=== PATIENT | female | born 1975 | race African-American/Black ===

== ENCOUNTER 2019-09-23 14:56 | Inpatient (IN) | payer OTHER ==
[2019-09-23 15:20] VITALS: BMI 22.1
--- NOTE | 2019-09-23 16:57 | HP ---
CIWA Score Nausea/Vomitin-Mild Nausea/No Vomiting Muscle Tremors: 4-Moderate,w/Arms Extend Anxiety: 4-Mod. Anxious/Guarded Agitation: 4-Moderately Restless Paroxysmal Sweats: 3 (Increased facial moisture) Orientation: 0-Oriented Tacttile Disturbances: 0-None Auditory Disturbances: 0-None Visual Disturbances: 0-None Headache: 5-Severe CIWA-Ar Total Score: 21 - Admission Criteria OASAS Guidelines: Admission for Medically Managed Detox: Requires at least one of the followin. CIWA greater than 12 2. Seizures within the past 24 hours 3. Delirium tremens within the past 24 hours 4. Hallucinations within the past 24 hours 5. Acute intervention needed for co occurring medical disorder 6. Acute intervention needed for co occurring psychiatric disorder 7. Severe withdrawal that cannot be handled at a lower level of care (continued vomiting, continued diarrhea, abnormal vital signs) requiring intravenous medication and/or fluids 8. Patient presents the following: CIWA greater than 12 (JOSELINE: 0.015) Admission Criteria Met: Admission criteria met Admission ROS [facility] Chief Complaint: States "here because I want to be clean for the new year." Allergies/Adverse Reactions: Allergies Allergy/AdvReac Type Severity Reaction Status Date / Time No Known Allergies Allergy Verified 09/23/19 15:14 History of Present Illness: 44 yo presents w/alcohol withdrawal symptoms seeking detox. JOSELINE: 0.015 UTox: + THC/MODESTO HCG: Neg Denies seizures or overdoses. States has had blackouts in the past. Longest sobriety 8 months in 2006. Alcohol use began at age 14. Currently drinks 5 nips/day and 7-12 oz beers/day x 5 years. Marijuana use began at age 12. Uses $50/ daily. Cocaine/crack use began at age 30. Currently using $2-300/day x 14 years. Nicotine use began at age 16. Smokes 6 cig/day. PMHx: Occ Migraine headaches; MHHx: Bipolar/Schizophrenia. Depression. States gets upset when has to talk a lot. Denies thoughts of harming self or others. SHx: Homeless. Unemployed. Denies legal issues. Search Terms: Topher Nathan, 1975 Search Date: 09/23/2019 05:03:52 PM The Drug Utilization Report below displays all of the controlled substance prescriptions, if any, that your patient has filled in the last twelve months. The information displayed on this report is compiled from pharmacy submissions to the Department, and accurately reflects the information as submitted by the pharmacies. This report was requested by: Agata Shaw | Reference #: [id number] There are no results for the search terms that you entered. Exam Limitations: No Limitations - Ebola screening Have you traveled outside of the country in the last 21 days: No (N) Have you had contact with anyone from an Ebola affected area: No Have you been sick,other than usual withdrawal symptoms: No Do you have a fever: No - Review of Systems Constitutional: Unexplained wgt Loss EENT: reports: Blurred Vision Respiratory: reports: No Symptoms reported Cardiac: reports: No Symptoms Reported GI: reports: Nausea, Indigestion (Heart burn - occ. Uses OTC meds) : reports: No Symptoms Reported Musculoskeletal: reports: Back Pain (Chronic intermittent pins and needles low back pain. "3". Increases w/ standing. Improves w/ lating down.), Joint Pain ((R ) ankle and knee pain when it rains) Integumentary: reports: No Symptoms Reported Neuro: reports: Headache (Frontal sharp headache - "10". Improves w/ silence.), Tremors Endocrine: reports: No Symptoms Reported Hematology: reports: No Symptoms Reported Psychiatric: reports: Orientated x3, Agitated, Depressed (Denies thoughts of harming self or others.), other (Responding to questions in short, abrupt manner ,) Other Systems: Reviewed and Negative Patient History - PPD History Previous Implant?: Yes Documented Results: Negative w/proof Implanted On Prior R Admission?: No PPD to be Administered?: Yes - Reproductive History Patient is a Female of Child Bearing Age (11 -55 yrs old): Yes Last Menstrual Period: 08/24/19 Patient : No - Smoking Cessation Smoking history: Current every day smoker Have you smoked in the past 12 months: Yes Aproximately how many cigarettes per day: 6 Hx Chewing Tobacco Use: No Initiated information on smoking cessation: Yes 'Breaking Loose' booklet given: 09/23/19 - Substance & Tx. History Hx Alcohol Use: Yes Hx Substance Use: Yes Substance Use Type: Alcohol, Cocaine, Marijuana Hx Substance Use Treatment: Yes (detox) - Substances abused Alcohol Substance route: Oral Frequency: Daily Amount used: 5 nips of vodka/whiskey & 7 beers Age of first use: 14 Date of last use: 09/23/19 Crack Other (specify): cocaine Substance route: Smoking Frequency: Daily Amount used: $200 Age of first use: 30 Date of last use: 09/23/19 Admission Physical Exam S - Vital Signs Vital Signs: Vital Signs - 24 hr 09/23/19 15:14 Temperature 97.7 F Pulse Rate 96 H Respiratory 18 Rate Blood Pressure 119/75 - Physical General Appearance: Yes: Nourished, Moderate Distress, Tremorous, Irritable, Sweating (Increased facial moisture), Anxious HEENTM: Yes: EOMI (Jerking movement of eyes upon lateral), Hearing grossly Normal, Normocephalic, Normal Voice, MEENAKSHI, Pharynx Normal, Nasal Congestion Respiratory: Yes: Lungs Clear (Pulse Ox = 97 %), Normal Breath Sounds, No Respiratory Distress Neck: Yes: No masses,lesions,Nodules, Supple Breast: Yes: Breast Exam Deferred Cardiology: Yes: Regular Rhythm, Regular Rate, S1, S2 Abdominal: Yes: Non Tender, Flat, Soft, Increased Bowel Sounds Genitourinary: Yes: Within Normal Limits Back: Yes: Other (Small curvature lumbar spinal area) Musculoskeletal: Yes: full range of Motion, Gait Steady Extremities: Yes: Normal Capillary Refill (Peripheral pulse +; No edema.) Neurological: Yes: 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 II-XII NML intact (Jerking movement of eyes upon lateral) , Fully Oriented, Alert, Motor Strength 5/5, Other (Upset about being asked questions.) Integumentary: Yes: Normal Color, Warm, Moist (Increased facial moisture) Lymphatic: Yes: Within Normal Limits - Diagnostic (1) Alcohol dependence with withdrawal, uncomplicated Current Visit: Yes Status: Acute (2) Cannabis dependence, uncomplicated Current Visit: Yes Status: Chronic (3) Cocaine dependence, uncomplicated Current Visit: Yes Status: Chronic (4) Low back pain Current Visit: Yes Status: Chronic Qualifiers: Chronicity: chronic Back pain laterality: midline Sciatica presence: unspecified whether sciatica present Qualified Code(s): M54.5 - Low back pain ; G89.29 - Other chronic pain (5) Nystagmus Current Visit: Yes Status: Acute (6) Nicotine dependence, unspecified, uncomplicated Current Visit: Yes Status: Chronic Qualifiers: Nicotine product type: cigarettes Qualified Code(s): F17.210 - Nicotine dependence, cigarettes, uncomplicated Cleared for Admission [facility] - Detox or Rehab [facility] Level of Care: Medically Managed Detox Regimen/Protocol: Librium Claeared for Rehab Admission: No Breathalyzer - Breathalyzer Breathalyzer: 0.015 Urine Drug Screen - Test Device Lot number: [id number] Expiration date: 04/26/21 - Control Is test valid?: Yes - Results Drug screen NEGATIVE: No Urine drug screen results: THC-Marijuana, MODESTO-Cocaine Inpatient Rehab Admission - Rehab Decision to Admit Inpatient rehab admission?: No
[2019-09-23] MEDS ORDERED: METHOCARBAMOL 500 MG TABLET PO PRN (17:47)
[2019-09-23] MEDS ORDERED: BISMUTH SUBSALICYLATE 524 MG/30 ML UD PO PRN (17:47)
[2019-09-23] MEDS ORDERED: PROCHLORPERAZINE MALEATE 5 MG TABLET PO PRN (17:47)
[2019-09-23] MEDS ORDERED: IBUPROFEN 400 MG TABLET (FP) PO PRN (17:47)
[2019-09-23] MEDS ORDERED: MAGNESIUM CITRATE 300 ML BOTTLE PO PRN (17:47)
[2019-09-23] MEDS ORDERED: chlordiazePOXIDE HCL 10 MG CAPSULE PO PRN (17:47)
[2019-09-23] MEDS ORDERED: ACETAMINOPHEN 325 MG TABLET (FP) PO PRN ×2 (17:47)
[2019-09-23] MEDS ORDERED: MAG HYDROX/AL HYDROX/SIMETH 30 ML UNIT-DOSE CUP PO PRN (17:47)
[2019-09-23] MEDS ORDERED: MENTHOL/PHENOL 1 EACH UD MM PRN (17:47)
[2019-09-23] MEDS ORDERED: guaiFENesin 200 MG/10 ML 10 ML UNIT-DOSE CUPS PO PRN (17:54)
[2019-09-23] MEDS: chlordiazePOXIDE HCL 25 MG CAPSULE PO SCH (21:24)
[2019-09-23] MEDS: THIAMINE HCL 100 MG TABLET (FP) PO SCH (22:24)
[2019-09-23] MEDS: MELATONIN 5 MG TABLETS PO PRN (22:26)
[2019-09-24] MEDS: chlordiazePOXIDE HCL 25 MG CAPSULE PO SCH ×3 (05:26→21:43)
[2019-09-24] MEDS: PRENATAL VITAMINS W/ FOLIC ACID TABLET (FP) PO SCH (10:16)
[2019-09-24] MEDS: NICOTINE POLACRILEX 2 MG GUM BUC PRN (11:05)
--- NOTE | 2019-09-24 11:05 | CONSULT ---
[facility] Psychiatric Consult - Data Date of interview: 09/24/19 Admission source: [facility] Identifying data: First [facility] visit and admission to [address] [place] [address] for this 44 y/o AA female self-referred for detoxification. JAMES issues : alcohol, cocaine/crack, cannabis, nicotine. patient is single, mother of two, domiciled (lives with friend), unemployed and supported on food stamps. Substance Abuse History: Discussed with the patient. Details in current [facility] report as follows : Smoking history: Current every day smoker. Have you smoked in the past 12 months: Yes. Aproximately how many cigarettes per day: 6. Hx Chewing Tobacco Use: No. Initiated information on smoking cessation: Yes. ' Breaking Loose' booklet given: 09/23/19. - Substance & Tx. History. Hx Alcohol Use: Yes. Hx Substance Use: Yes. Substance Use Type: Alcohol, Cocaine , Marijuana. Hx Substance Use Treatment: Yes (detox). - Substances abused. * * Alcohol. Substance route: Oral. Frequency: Daily. Amount used: 5 nips of vodka/whiskey & 7 beers. Age of first use: 14. Date of last use: 09/23/19. * * Crack. Other (specify): cocaine. Substance route: Smoking. Frequency: Daily. Amount used: $200. Age of first use: 30. Date of last use: 09/23/19 Medical History: Patient endorses good general health. Psychiatric History: Patient denies history of psychiatric hospitalizations. She indicates past treatment with valproate + aripriprazole under the diagnosis of bipolar disorder. Ms Nathan states that she stopped OPD care 1-2 months ago ( she used to attend a mental health clinic located in [place]). Patient denies history of suicide attempts. Physical/Sexual Abuse/Trauma History: Patient denies history of abuse. Additional Comment: Urine drug screen results: THC-Marijuana, MODESTO-Cocaine. Noted. Mental Status Exam - Mental Status Exam Alert and Oriented to: Time, Place, Person Cognitive Function: Good Patient Appearance: Well Groomed Mood: Nervous, Withdrawn Affect: Appropriate, Mood Congruent Patient Behavior: Fatigued, Appropriate, Cooperative Speech Pattern: Clear, Appropriate Voice Loudness: Normal Thought Process: Intact, Goal Oriented Thought Disorder: Not Present Hallucinations: Denies Suicidal Ideation: Denies Homicidal Ideation: Denies Insight/Judgement: Poor Sleep: Well Appetite: Good Gait/Station: Normal Psychiatric Findings - Problem List ([place] 1, 2,3) (1) Alcohol dependence with withdrawal, uncomplicated Current Visit: Yes Status: Acute (2) Cannabis dependence, uncomplicated Current Visit: Yes Status: Chronic (3) Cocaine dependence, uncomplicated Current Visit: Yes Status: Chronic (4) Nicotine dependence, unspecified, uncomplicated Current Visit: Yes Status: Chronic Qualifiers: Nicotine product type: cigarettes Qualified Code(s): F17.210 - Nicotine dependence, cigarettes, uncomplicated (5) History of bipolar disorder Current Visit: Yes Status: Chronic Comment: Now asymptomatic. Non compliant with OPD care. - Initial Treatment Plan Initial Treatment Plan: Psychoeducation. Sleep hygiene. Detoxification. AA meetings. Support. MAT services explained to the patient. Observation.
--- NOTE | 2019-09-24 11:31 | PN ---
S CIWA - CIWA Score Nausea/Vomitin Muscle Tremors: 2 Anxiety: 3 Agitation: 0-Normal Activity Paroxysmal Sweats: 3 Orientation: 0-Oriented Tacttile Disturbances: 0-None Auditory Disturbances: 0-None Visual Disturbances: 0-None Headache: 2-Mild CIWA-Ar Total Score: 12 BHS Progress Note (SOAP) Subjective: c/o sweats, nausea, anxiety, shakes, and headache. Objective: 09/24/19 11:32 Vital Signs 09/24/19 09/24/19 06:47 09:22 Temperature 97.9 F 97.8 F Pulse Rate 56 L 74 Respiratory 18 18 Rate Blood Pressure 105/64 114/64 Labs pending. Assessment: 09/24/19 11:33 AOx3, in no acute respiratory distress. Full rom, ambulating in the unit. Withdrawal symptoms. Plan: continue detox.
[2019-09-24 12:34] LABS: HEMATOCRIT 40.2 % (32.4-45.2); HEMOGLOBIN 13.2 GM/dL (10.7-15.3); MCH 30.6 pg (25.7-33.7); MCHC 32.8 g/dl (32.0-36.0); MEAN CELL VOLUME 93.2 fl (80-96); MEAN PLT VOLUME 8.1 fl (7.5-11.1); PLATELET COUNT 384 K/MM3 (134-434); RBC 4.31 M/mm3 (3.60-5.2); RDW 13.9 % (11.6-15.6); WHITE BLOOD COUNT 8.3 K/mm3 (4.0-10.0)
[2019-09-24 12:59] LABS: ALBUMIN 3.2 g/dl (3.4-5.0); BILIRUBIN,TOTAL 0.5 mg/dL (0.2-1); BLOOD UREA NITROGEN 6.7 mg/dL (7-18); CALCIUM 8.8 mg/dL (8.5-10.1); CREATININE 0.8 mg/dL (0.55-1.3); POTASSIUM 3.9 mmol/L (3.5-5.1); TOT PROT 6.7 g/dl (6.4-8.2)
--- NOTE | 2019-09-24 13:33 | EKG ---
Test Reason : Blood Pressure : / mmHG Vent. Rate : 052 BPM Atrial Rate : 052 BPM P-R Int : 148 ms QRS Dur : 092 ms QT Int : 462 ms P-R-T Axes : 026 078 072 degrees QTc Int : 429 ms SINUS BRADYCARDIA WITH PREMATURE ATRIAL COMPLEXES OTHERWISE NORMAL ECG NO PREVIOUS ECGS AVAILABLE Confirmed by MD JUAN, BRIE ([id number]) on 09/24/2019 1:33:05 PM Referred By: Confirmed By:BRIE MARTINEZ MD
[2019-09-24 17:39] LABS: EPI CELLS 11.8 /HPF (0-5/HPF); HYALINE CASTS 17 /lpf (0-8); URINE APPEARANCE CLOUDY; URINE BACTERIA 404.9 /hpf (NEGATIVE); URINE BILIRUBIN NEGATIVE (NEGATIVE); URINE COLOR DK YELLOW; URINE GLUCOSE (UA) NEGATIVE (NEGATIVE); URINE KETONE TRACE (NEGATIVE); URINE LEUK ESTERASE 2+ (NEGATIVE); URINE NITRITE NEGATIVE (NEGATIVE); URINE PROTEIN NEGATIVE (NEGATIVE); URINE RBC 6 /hpf (0-4); URINE UROBILINOGEN 0.2 mg/dL (0.2-1.0); URINE WBC 55 /hpf (0-5)
[2019-09-24 19:03] LABS: URINE CRYSTALS MODERATE /hpf
[2019-09-24] MEDS: THIAMINE HCL 100 MG TABLET (FP) PO SCH (21:43)
[2019-09-24] MEDS: MELATONIN 5 MG TABLETS PO PRN (21:43)
[2019-09-25] MEDS: chlordiazePOXIDE 5 MG CAPSULE PO SCH ×3 (05:54→21:51)
[2019-09-25] MEDS: PRENATAL VITAMINS W/ FOLIC ACID TABLET (FP) PO SCH (10:17)
--- NOTE | 2019-09-25 11:44 | PN ---
[facility] CIWA - CIWA Score Nausea/Vomitin-No Nausea/No Vomiting Muscle Tremors: 3 Anxiety: 2 Agitation: 1-Slight > Activity Paroxysmal Sweats: 2 Orientation: 0-Oriented Tacttile Disturbances: 0-None Auditory Disturbances: 0-None Visual Disturbances: 0-None Headache: 1-Very Mild CIWA-Ar Total Score: 9 S Progress Note (SOAP) Subjective: 44 years old female admitted on 09/23/19 for alcohol withdrawal sx management treating with librium detox regimen feeling ok today ate breakfast encourage to attend groups and meetings Objective: 09/25/19 11:42 Vital Signs Temperature 98.3 F 09/25/19 09:09 Pulse Rate 89 09/25/19 09:09 Respiratory Rate 18 09/25/19 09:09 Blood Pressure 107/72 09/25/19 09:09 O2 Sat by Pulse Oximetry (%) Laboratory Last Values WBC 8.3 K/mm3 (4.0-10.0) 09/24/19 07:30 RBC 4.31 M/mm3 (3.60-5.2) 09/24/19 07:30 Hgb 13.2 GM/dL (10.7-15.3) 09/24/19 07:30 Hct 40.2 % (32.4-45.2) 09/24/19 07:30 MCV 93.2 fl (80-96) 09/24/19 07:30 MCH 30.6 pg (25.7-33.7) 09/24/19 07:30 MCHC 32.8 g/dl (32.0-36.0) 09/24/19 07:30 RDW 13.9 % (11.6-15.6) 09/24/19 07:30 Plt Count 384 K/MM3 (134-434) 09/24/19 07:30 MPV 8.1 fl (7.5-11.1) 09/24/19 07:30 Sodium 139 mmol/L (136-145) 09/24/19 07:30 Potassium 3.9 mmol/L (3.5-5.1) 09/24/19 07:30 Chloride 106 mmol/L (98-107) 09/24/19 07:30 Carbon Dioxide 27 mmol/L (21-32) 09/24/19 07:30 Anion Gap 6 MMOL/L (8-16) L 09/24/19 07:30 BUN 6.7 mg/dL (7-18) L 09/24/19 07:30 Creatinine 0.8 mg/dL (0.55-1.3) 09/24/19 07:30 Est GFR (CKD-EPI)AfAm 103.92 09/24/19 07:30 Est GFR (CKD-EPI)NonAf 89.66 09/24/19 07:30 Random Glucose 95 mg/dL (74-106) 09/24/19 07:30 Calcium 8.8 mg/dL (8.5-10.1) 09/24/19 07:30 Total Bilirubin 0.5 mg/dL (0.2-1) 09/24/19 07:30 AST 15 U/L (15-37) 09/24/19 07:30 ALT 13 U/L (13-61) 09/24/19 07:30 Alkaline Phosphatase 62 U/L (45-117) 09/24/19 07:30 Total Protein 6.7 g/dl (6.4-8.2) 09/24/19 07:30 Albumin 3.2 g/dl (3.4-5.0) L 09/24/19 07:30 Urine Color Dk yellow 09/24/19 10:22 Urine Appearance Cloudy 09/24/19 10:22 Urine pH 6.0 (5.0-8.0) 09/24/19 10:22 Ur Specific [place] 1.029 (1.010-1.035) 09/24/19 10:22 Urine Protein Negative (NEGATIVE) 09/24/19 10:22 Urine Glucose (UA) Negative (NEGATIVE) 09/24/19 10:22 Urine Ketones Trace (NEGATIVE) H 09/24/19 10:22 Urine Blood Negative (NEGATIVE) 09/24/19 10:22 Urine Nitrite Negative (NEGATIVE) 09/24/19 10:22 Urine Bilirubin Negative (NEGATIVE) 09/24/19 10:22 Urine Urobilinogen 0.2 mg/dL (0.2-1.0) 09/24/19 10:22 Ur Leukocyte Esterase 2+ (NEGATIVE) H 09/24/19 10:22 Urine WBC (Auto) 55 /hpf (0-5) 09/24/19 10:22 Urine RBC (Auto) 6 /hpf (0-4) 09/24/19 10:22 Urine Casts (Auto) 17 /lpf (0-8) 09/24/19 10:22 U Epithel Cells (Auto) 11.8 /HPF (0-5/HPF) 09/24/19 10:22 Urine Crystals (Auto) Moderate /hpf 09/24/19 10:22 Urine Bacteria (Auto) 404.9 /hpf (NEGATIVE) 09/24/19 10:22 POC Urine HCG, Qual Negative 09/23/19 10:22 RPR Titer Nonreactive (NONREACTIVE) 09/24/19 07:30 lab noted uti begin bactrim ds bid 09/25/19 11:42 Assessment: 09/25/19 11:44 alcohol withdrawal Plan: libirum regimen uti bactrim ds bid x 5 days increase oral fluid
[2019-09-25] MEDS: SULFAMETHOXAZOLE/TRIMETHOPRIM 800MG/160MG D.S. TABLET PO SCH ×2 (12:22→21:51)
[2019-09-25] MEDS: MAGNESIUM HYDROX 2400MG/30ML ORAL SUSPENSION 30 ML CUP PO PRN (19:06)
[2019-09-25] MEDS: THIAMINE HCL 100 MG TABLET (FP) PO SCH (21:51)
[2019-09-25] MEDS: MELATONIN 5 MG TABLETS PO PRN (21:51)
[2019-09-26] MEDS ORDERED: chlordiazePOXIDE HCL 10 MG CAPSULE PO PRN
[2019-09-26] MEDS: chlordiazePOXIDE HCL 10 MG CAPSULE PO SCH ×3 (05:30→21:50)
[2019-09-26] MEDS: SULFAMETHOXAZOLE/TRIMETHOPRIM 800MG/160MG D.S. TABLET PO SCH ×2 (10:37→22:10)
[2019-09-26] MEDS: PRENATAL VITAMINS W/ FOLIC ACID TABLET (FP) PO SCH (10:37)
--- NOTE | 2019-09-26 12:06 | PN ---
S CIWA - CIWA Score Nausea/Vomitin-No Nausea/No Vomiting Muscle Tremors: 2 Anxiety: 1-Mildly Anxious Agitation: 1-Slight > Activity Paroxysmal Sweats: 2 Orientation: 0-Oriented Tacttile Disturbances: 0-None Auditory Disturbances: 0-None Visual Disturbances: 0-None Headache: 0-None Present CIWA-Ar Total Score: 6 BHS Progress Note (SOAP) Subjective: 44 years old female admitted on 09/23/19 for alcohol withdrawal sx management treating with librium detox regimen feeling better today less tremor slept better last night discuss uti prevention and important of oral fluid related to bactrim ds bid Objective: 09/26/19 12:05 Vital Signs Temperature 98.1 F 09/26/19 09:04 Pulse Rate 76 09/26/19 09:04 Respiratory Rate 18 09/26/19 09:04 Blood Pressure 110/73 09/26/19 09:04 O2 Sat by Pulse Oximetry (%) Laboratory Last Values WBC 8.3 K/mm3 (4.0-10.0) 09/24/19 07:30 RBC 4.31 M/mm3 (3.60-5.2) 09/24/19 07:30 Hgb 13.2 GM/dL (10.7-15.3) 09/24/19 07:30 Hct 40.2 % (32.4-45.2) 09/24/19 07:30 MCV 93.2 fl (80-96) 09/24/19 07:30 MCH 30.6 pg (25.7-33.7) 09/24/19 07:30 MCHC 32.8 g/dl (32.0-36.0) 09/24/19 07:30 RDW 13.9 % (11.6-15.6) 09/24/19 07:30 Plt Count 384 K/MM3 (134-434) 09/24/19 07:30 MPV 8.1 fl (7.5-11.1) 09/24/19 07:30 Sodium 139 mmol/L (136-145) 09/24/19 07:30 Potassium 3.9 mmol/L (3.5-5.1) 09/24/19 07:30 Chloride 106 mmol/L (98-107) 09/24/19 07:30 Carbon Dioxide 27 mmol/L (21-32) 09/24/19 07:30 Anion Gap 6 MMOL/L (8-16) L 09/24/19 07:30 BUN 6.7 mg/dL (7-18) L 09/24/19 07:30 Creatinine 0.8 mg/dL (0.55-1.3) 09/24/19 07:30 Est GFR (CKD-EPI)AfAm 103.92 09/24/19 07:30 Est GFR (CKD-EPI)NonAf 89.66 09/24/19 07:30 Random Glucose 95 mg/dL (74-106) 09/24/19 07:30 Calcium 8.8 mg/dL (8.5-10.1) 09/24/19 07:30 Total Bilirubin 0.5 mg/dL (0.2-1) 09/24/19 07:30 AST 15 U/L (15-37) 09/24/19 07:30 ALT 13 U/L (13-61) 09/24/19 07:30 Alkaline Phosphatase 62 U/L (45-117) 09/24/19 07:30 Total Protein 6.7 g/dl (6.4-8.2) 09/24/19 07:30 Albumin 3.2 g/dl (3.4-5.0) L 09/24/19 07:30 Urine Color Dk yellow 09/24/19 10:22 Urine Appearance Cloudy 09/24/19 10:22 Urine pH 6.0 (5.0-8.0) 09/24/19 10:22 Ur Specific [place] 1.029 (1.010-1.035) 09/24/19 10:22 Urine Protein Negative (NEGATIVE) 09/24/19 10:22 Urine Glucose (UA) Negative (NEGATIVE) 09/24/19 10:22 Urine Ketones Trace (NEGATIVE) H 09/24/19 10:22 Urine Blood Negative (NEGATIVE) 09/24/19 10:22 Urine Nitrite Negative (NEGATIVE) 09/24/19 10:22 Urine Bilirubin Negative (NEGATIVE) 09/24/19 10:22 Urine Urobilinogen 0.2 mg/dL (0.2-1.0) 09/24/19 10:22 Ur Leukocyte Esterase 2+ (NEGATIVE) H 09/24/19 10:22 Urine WBC (Auto) 55 /hpf (0-5) 09/24/19 10:22 Urine RBC (Auto) 6 /hpf (0-4) 09/24/19 10:22 Urine Casts (Auto) 17 /lpf (0-8) 09/24/19 10:22 U Epithel Cells (Auto) 11.8 /HPF (0-5/HPF) 09/24/19 10:22 Urine Crystals (Auto) Moderate /hpf 09/24/19 10:22 Urine Bacteria (Auto) 404.9 /hpf (NEGATIVE) 09/24/19 10:22 POC Urine HCG, Qual Negative 09/23/19 15:32 RPR Titer Nonreactive (NONREACTIVE) 09/24/19 07:30 lab noted uti treated with bactrim ds bid patient tolerated well no adverse reaction noted Assessment: 09/26/19 12:06 alcohol withdrawal Plan: librium regimen
[2019-09-26] MEDS: MELATONIN 5 MG TABLETS PO PRN (21:50)
[2019-09-26] MEDS: THIAMINE HCL 100 MG TABLET (FP) PO SCH (21:50)
[2019-09-27] MEDS ORDERED: chlordiazePOXIDE HCL 10 MG CAPSULE PO ONE (05:00)
[2019-09-27] MEDS: MAGNESIUM HYDROX 2400MG/30ML ORAL SUSPENSION 30 ML CUP PO PRN (05:35)
[2019-09-27] MEDS: SULFAMETHOXAZOLE/TRIMETHOPRIM 800MG/160MG D.S. TABLET PO SCH (09:08)
[2019-09-27] MEDS: PRENATAL VITAMINS W/ FOLIC ACID TABLET (FP) PO SCH (09:08)
[2019-09-27 09:10] VITALS: BP 110/76; PULSE 100; TEMP 96.7
[2019-09-27] MEDS: NICOTINE POLACRILEX 2 MG GUM BUC PRN (10:25)
--- NOTE | 2019-09-27 14:10 | DS ---
[facility] Detox Discharge Summary Admission Date: 09/23/19 Discharge Date: 09/27/19 - History Present History: Alcohol Dependence Additional Comments: 44 years old female admitted on 09/23/19 for alcohol withdrawal sx management treated with librium detox regimen patient tolerated well alert oriented x 3 respiratory clear lungs bilaterally on auscultation extremities full range of motion skin warm and dry - Physical Exam Results Vital Signs: Vital Signs Temperature 96.7 F L 09/27/19 09:10 Pulse Rate 100 H 09/27/19 09:10 Respiratory Rate 18 09/27/19 09:10 Blood Pressure 110/76 09/27/19 09:10 O2 Sat by Pulse Oximetry (%) Pertinent Admission Physical Exam Findings: alcohol withdrawal Laboratory Last Values WBC 8.3 K/mm3 (4.0-10.0) 09/24/19 07:30 RBC 4.31 M/mm3 (3.60-5.2) 09/24/19 07:30 Hgb 13.2 GM/dL (10.7-15.3) 09/24/19 07:30 Hct 40.2 % (32.4-45.2) 09/24/19 07:30 MCV 93.2 fl (80-96) 09/24/19 07:30 MCH 30.6 pg (25.7-33.7) 09/24/19 07:30 MCHC 32.8 g/dl (32.0-36.0) 09/24/19 07:30 RDW 13.9 % (11.6-15.6) 09/24/19 07:30 Plt Count 384 K/MM3 (134-434) 09/24/19 07:30 MPV 8.1 fl (7.5-11.1) 09/24/19 07:30 Sodium 139 mmol/L (136-145) 09/24/19 07:30 Potassium 3.9 mmol/L (3.5-5.1) 09/24/19 07:30 Chloride 106 mmol/L (98-107) 09/24/19 07:30 Carbon Dioxide 27 mmol/L (21-32) 09/24/19 07:30 Anion Gap 6 MMOL/L (8-16) L 09/24/19 07:30 BUN 6.7 mg/dL (7-18) L 09/24/19 07:30 Creatinine 0.8 mg/dL (0.55-1.3) 09/24/19 07:30 Est GFR (CKD-EPI)AfAm 103.92 09/24/19 07:30 Est GFR (CKD-EPI)NonAf 89.66 09/24/19 07:30 Random Glucose 95 mg/dL (74-106) 09/24/19 07:30 Calcium 8.8 mg/dL (8.5-10.1) 09/24/19 07:30 Total Bilirubin 0.5 mg/dL (0.2-1) 09/24/19 07:30 AST 15 U/L (15-37) 09/24/19 07:30 ALT 13 U/L (13-61) 09/24/19 07:30 Alkaline Phosphatase 62 U/L (45-117) 09/24/19 07:30 Total Protein 6.7 g/dl (6.4-8.2) 09/24/19 07:30 Albumin 3.2 g/dl (3.4-5.0) L 09/24/19 07:30 Urine Color Dk yellow 09/24/19 10:22 Urine Appearance Cloudy 09/24/19 10:22 Urine pH 6.0 (5.0-8.0) 09/24/19 10:22 Ur Specific [place] 1.029 (1.010-1.035) 09/24/19 10:22 Urine Protein Negative (NEGATIVE) 09/24/19 10:22 Urine Glucose (UA) Negative (NEGATIVE) 09/24/19 10:22 Urine Ketones Trace (NEGATIVE) H 09/24/19 10:22 Urine Blood Negative (NEGATIVE) 09/24/19 10:22 Urine Nitrite Negative (NEGATIVE) 09/24/19 10:22 Urine Bilirubin Negative (NEGATIVE) 09/24/19 10:22 Urine Urobilinogen 0.2 mg/dL (0.2-1.0) 09/24/19 10:22 Ur Leukocyte Esterase 2+ (NEGATIVE) H 09/24/19 10:22 Urine WBC (Auto) 55 /hpf (0-5) 09/24/19 10:22 Urine RBC (Auto) 6 /hpf (0-4) 09/24/19 10:22 Urine Casts (Auto) 17 /lpf (0-8) 09/24/19 10:22 U Epithel Cells (Auto) 11.8 /HPF (0-5/HPF) 09/24/19 10:22 Urine Crystals (Auto) Moderate /hpf 09/24/19 10:22 Urine Bacteria (Auto) 404.9 /hpf (NEGATIVE) 09/24/19 10:22 POC Urine HCG, Qual Negative 09/23/19 18:44 RPR Titer Nonreactive (NONREACTIVE) 09/24/19 07:30 lab noted uncomplicated uti bactrim ds bid end at 09/30/19 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 - Treatment Hospital Course: Detox Protocol Followed, Detoxed Safely, Responded well, Discharged Condition Good, Rehab Referral Accepted Patient has Accepted a Rehab Referral to: [facility] - Medication Discharge Medications: Ambulatory Orders Sulfamethoxazole/Trimethoprim [Bactrim DS -] 1 each PO BID #7 tablet 09/27/19 - Diagnosis (1) Alcohol dependence with withdrawal, uncomplicated Current Visit: Yes Status: Acute (2) Nicotine dependence, unspecified, uncomplicated Current Visit: Yes Status: Acute Qualifiers: Nicotine product type: cigarettes Qualified Code(s): F17.210 - Nicotine dependence, cigarettes, uncomplicated (3) UTI (urinary tract infection), uncomplicated Current Visit: Yes Status: Chronic - AMA Did Patient Leave Against Medical Advice: No CIWA Score - CIWA Score Nausea/Vomitin-No Nausea/No Vomiting Muscle Tremors: 1-None Visible, but [place] Anxiety: 0-No Anxiety, at Ease Agitation: 0-Normal Activity Paroxysmal Sweats: 1-Minimal Palms Moist Orientation: 0-Oriented Tacttile Disturbances: 0-None Auditory Disturbances: 0-None Visual Disturbances: 0-None Headache: 0-None Present CIWA-Ar Total Score: 2
== END 2019-09-27 12:00 | disposition home or self-care (01) | DRG 774 ==
LOC: YASAS 14:56 → Y3N 18:06
PROVIDERS: ADMIT Allergy & Immunology; ATTEND Allergy & Immunology
PROC: HZ2ZZZZ Detoxification Services for Substance Abuse Treatment (ICD-10-PCS; principal; 2019-09-23)
DX: F10.230 Alcohol dependence with withdrawal, uncomplicated (principal); F14.20 Cocaine dependence, uncomplicated; F12.20 Cannabis dependence, uncomplicated; F17.210 Nicotine dependence, cigarettes, uncomplicated; N39.0 Urinary tract infection, site not specified; H55.00 Unspecified nystagmus; M54.5 Low back pain; G89.29 Other chronic pain; Z56.0 Unemployment, unspecified; Z59.0 Homelessness
CPT/HCPCS: 36415; 80053; 81003; 81025; 85027; 86593; 93005; 93010